=== PATIENT | male | born 1955 | race Two or more races ===

== ENCOUNTER 2024-04-06 11:30 | Inpatient (IN) | payer MEDICARE, OTHER ==
[~2024-04-06] VITALS: Ht 175.3 cm; Wt 103.0 kg
[~2024-04-06 11:30] MED LIST: CYCL10TA9 PO; LOPE2TAB57 PO
[2024-04-06 11:58] LABS: BASOPHILS # (AUTO) 0.1 K/uL (0.0-0.2); BASOPHILS % (AUTO) 1.3 % (0.0-2.0); EOSINOPHILS # (AUTO) 0.2 K/uL (0.0-0.7); EOSINOPHILS % (AUTO) 3.3 % (0.0-6.0); HEMATOCRIT 46 % (39-51); HEMOGLOBIN 15.5 g/dL (13.5-17.5); LYMPHOCYTES # (AUTO) 1.7 K/uL (0.8-4.8); LYMPHOCYTES % (AUTO) 23.5 % (20.0-44.0); MEAN CORPUSCULAR HEMOGLOBIN 30 PG (26.0-33.0); MEAN CORPUSCULAR HGB CONC 34 g/dl (31.0-36.0); MEAN CORPUSCULAR VOLUME 88 fL (80-96); MONOCYTES # (AUTO) 0.6 K/uL (0.1-1.30); MONOCYTES % (AUTO) 8.7 % (2.0-12.0); NEUTROPHILS # (AUTO) 4.5 K/uL (1.8-8.9); NEUTROPHILS % (AUTO) 63.2 % (43.0-81.0); PLATELET COUNT (AUTO) 252 K/uL (150-450); RED BLOOD CELL COUNT(AUTO) 5.23 MIL/uL (4.5-6.0); RED CELL DISTRIBUTION WIDTH 14.4 % (11.5-15.0); WHITE BLOOD COUNT (AUTO) 7.1 K/uL (4.3-11.0)
[2024-04-06] MEDS: VANCOMYCIN 1 GM in IV D5W 250 ML IV ONE (12:00)
[2024-04-06] MEDS: IV NS 0.9% 1,000 ML BAG IV ONE (12:20)
[2024-04-06] MEDS: PIPERACILLIN /TAZOBACTAM 3.375 G in IV D5W 50 ML IV ONE (12:21)
[2024-04-06] MEDS ORDERED: IV NS 0.9% 250 ML IV ONE (12:35)
[2024-04-06] MEDS ORDERED: IOHEXOL-300 100 ML VIAL IV ONE (12:35)
[2024-04-06] MEDS ORDERED: CT SWABBABLE VALVE TRANS SET 1 EA INFUS.SET MC ONE (12:35)
[2024-04-06 12:36] LABS: CARBON DIOXIDE 29 mmol/L (21-32); CHLORIDE 100 mmol/L (98-107); CREATININE 0.8 mg/dL (0.6-1.3); GLUCOSE 114 mg/dL (74-106); POTASSIUM 4.4 mmol/L (3.5-5.1); SODIUM SERUM 136 mmol/L (136-145); UREA NITROGEN, BLOOD 9 mg/dL (7-18)
[2024-04-06 12:39] LABS: MAGNESIUM 2.2 mg/dL (1.8-2.4); PHOSPHORUS 3.5 mg/dL (2.5-4.9)
[2024-04-06 12:43] LABS: SITE, VBG VBG - N/A; VBG BASE EXCESS 2.8 mmol/L (-2.0-3.0); VBG COHb 12.9 % (0.5-1.5); VBG HCO3 29.1 mmol/L (22.0-29.0); VBG MetHb 0.3 % (0.5-1.5); VBG O2Hb 70.6 % (0-79); VBG OXYGEN SATURATION 81.3 % (60.0-85.0); VBG PCO2 50.5 mmHg (38.0-54.0); VBG PH 7.378 (7.320-7.430); VBG PO2 40.3 mmHg (23.0-48.0); VBG TOTAL HEMOGLOBIN 15.9 G/dL (13.5-17.5)
[2024-04-06 12:43] LABS: ALANINE AMINOTRANSFERASE 25 U/L (12-78); ALBUMIN 3.6 g/dL (3.4-5.0); ALKALINE PHOSPHATASE 76 U/L (46-116); ASPARTATE AMINOTRANSFERASE 16 U/L (15-37); BILIRUBIN,DIRECT 0.1 mg/dL (0.0-0.2); BILIRUBIN,TOTAL 0.4 mg/dL (0.2-1.0); INR 0.99 (0.91-1.10); PARTIAL THROMBOPLASTIN TIME 27.6 SEC (24.3-34.3); PROTHROMBIN TIME 10.5 SECS (9.2-11.1); TOTAL PROTEIN, SERUM 7.9 g/dL (6.4-8.2)
[2024-04-06 12:45] LABS: ACETONE, SERUM NEGATIVE (NEGATIVE)
[2024-04-06 12:47] LABS: LACTIC ACID 1.4 mmol/L (0.4-2.0)
[2024-04-06 13:00] LABS: APPEARANCE,URINE CLEAR (CLEAR); BILIRUBIN,URINE NEGATIVE (NEGATIVE); BLOOD, URINE NEGATIVE Ery/uL (NEGATIVE); COLOR,URINE YELLOW (YELLOW); KETONES,URINE NEGATIVE (NEGATIVE); LEUKOCYTE ESTERASE ,URINE NEGATIVE (NEGATIVE); NITRITE, URINE NEGATIVE (NEGATIVE); PROTEIN,URINE NEGATIVE (NEGATIVE); UGLUCOSE NEGATIVE (NEGATIVE); UROBILINOGEN,URINE 0.2 EU/dL (0.2)
[2024-04-06] MEDS ORDERED: ASPI-1169 PO (14:42)
[2024-04-06] MEDS ORDERED: FLUC200T PO (14:42)
[2024-04-06] MEDS ORDERED: ATOR40TA PO (14:42)
[2024-04-06] MEDS ORDERED: LORA10TA68 PO (14:42)
[2024-04-06] MEDS ORDERED: BUDE10.2 IH (14:42)
[2024-04-06] MEDS ORDERED: AMOX-430 PO (14:42)
[2024-04-06] MEDS ORDERED: FINA5TAB11 PO (14:42)
[2024-04-06] MEDS ORDERED: METF-442 PO (14:42)
[2024-04-06] MEDS ORDERED: LOSA1TAB36 PO (14:42)
[2024-04-06] MEDS ORDERED: TAMS-12 PO (14:42)
[2024-04-06] MEDS ORDERED: ONDANSETRON HCL/PF 4 MG/2 ML VIAL IVP PRN (15:30)
[2024-04-06] MEDS ORDERED: MAG HYDROX/AL HYDROX/SIMETH 30 ML UDC PO PRN (15:30)
[2024-04-06] MEDS ORDERED: MAGNESIUM HYDROXIDE 30 ML UDC PO PRN (15:30)
[2024-04-06 16:00] VITALS: BP 166/73; TEMP 97.3; O2SAT 95
[2024-04-06] MEDS: CEFEPIME 2 GM in IV D5W 100 ML IV SCH (17:17)
[2024-04-06] MEDS: methylPREDNISolone SOD SUCC 125 MG/2ML VIAL IV ONE (17:17)
[2024-04-06] MEDS: NICOTINE PATCH (21MG) 21 MG PATCH.TD24 TD SCH (17:52)
[2024-04-06 18:46] LABS: C-REACTIVE PROTEIN 0.41 mg/dL (0.0-0.30); PROSTATE SPECIFIC ANTIGEN SCR 1.16 ng/mL (0.00-4.00)
[2024-04-06 20:00] VITALS: BP_SYST 159; BP_SYST 161; BP_DIAS 78; TEMP 98.1; O2SAT 92
[2024-04-06] MEDS: diphenhydrAMINE HCL ELIX 25 MG/10 ML UDC PO PRN (21:53)
[2024-04-07] MEDS: GUAIFENESIN/D-METHORPHAN HB 5 ML UDC PO PRN (00:56)
[2024-04-07 04:02] LABS: HIV-1 p24 ANTIGEN NON REACTIVE (NONREACTIVE); HIV-1/2 ANTIBODY NON REACTIVE (NONREACTIVE)
[2024-04-07 06:55] LABS: BASOPHILS % (AUTO) 0.2 % (0.0-2.0); HEMATOCRIT 44 % (39-51); HEMOGLOBIN 14.8 g/dL (13.5-17.5); LYMPHOCYTES # (AUTO) 0.9 K/uL (0.8-4.8); LYMPHOCYTES % (AUTO) 15.8 % (20.0-44.0); MEAN CORPUSCULAR HEMOGLOBIN 29 PG (26.0-33.0); MEAN CORPUSCULAR HGB CONC 33 g/dl (31.0-36.0); MEAN CORPUSCULAR VOLUME 87 fL (80-96); MONOCYTES # (AUTO) 0.1 K/uL (0.1-1.30); NEUTROPHILS # (AUTO) 4.4 K/uL (1.8-8.9); PLATELET COUNT (AUTO) 248 K/uL (150-450); RED CELL DISTRIBUTION WIDTH 14.7 % (11.5-15.0); WHITE BLOOD COUNT (AUTO) 5.4 K/uL (4.3-11.0)
[2024-04-07 07:38] LABS: CALCIUM, SERUM 9.3 mg/dL (8.5-10.1); CREATININE 0.7 mg/dL (0.6-1.3); POTASSIUM 4.7 mmol/L (3.5-5.1)
[2024-04-07 08:00] VITALS: BP 130/76; TEMP 97.7; O2SAT 96
[2024-04-07 08:31] VITALS: BP 130/76; TEMP 97.7; O2SAT 96
[2024-04-07] MEDS: METFORMIN 500 MG TABLET PO SCH (09:00)
[2024-04-07] MEDS: FINASTERIDE (5 MG) 5 MG TABLET PO SCH (09:26)
[2024-04-07] MEDS: TAMSULOSIN 0.4 MG CAP.SR.24H PO SCH (09:26)
[2024-04-07] MEDS: CLOTRIMAZOLE/BETAMETASONE DIPROPIONATE 15 GM TUBE TP SCH (09:27)
[2024-04-07 16:00] VITALS: BP 127/63; TEMP 98.2; O2SAT 95
[2024-04-07 16:33] VITALS: BP 127/63; TEMP 98.2; O2SAT 93
[2024-04-07 20:00] VITALS: BP 148/69; TEMP 97.7; O2SAT 95
[2024-04-08 07:08] LABS: RAPID PLASMA REAGIN QUAL. Non Reactive (Non Reactive)
[2024-04-08] MEDS: LORATADINE 10 MG TABLET PO SCH (12:34)
[2024-04-08] MEDS: ACETAMINOPHEN 325 MG TABLET PO PRN (15:22)
[2024-04-08] MEDS: Z GUARD REMEDY 4 OZ OINT TP PRN (16:31)
[2024-04-08 20:00] VITALS: BP 151/77; TEMP 97.3; TEMP 97.5; O2SAT 95
[2024-04-08] MEDS: diphenhydrAMINE HCL ELIX 25 MG/10 ML UDC PO ONE (22:38)
[2024-04-09 06:09] LABS: CHLAMYDIA TRACHOMATIS NAA Negative (Negative); NEISSERIA GONORRHOEAE NAA Negative (Negative)
[2024-04-09 06:24] LABS: BASOPHILS # (AUTO) 0.1 K/uL (0.0-0.2); BASOPHILS % (AUTO) 0.7 % (0.0-2.0); EOSINOPHILS # (AUTO) 0.1 K/uL (0.0-0.7); EOSINOPHILS % (AUTO) 1.7 % (0.0-6.0); HEMATOCRIT 45 % (39-51); HEMOGLOBIN 15.3 g/dL (13.5-17.5); LYMPHOCYTES # (AUTO) 1.7 K/uL (0.8-4.8); LYMPHOCYTES % (AUTO) 19.4 % (20.0-44.0); MEAN CORPUSCULAR HEMOGLOBIN 30 PG (26.0-33.0); MEAN CORPUSCULAR HGB CONC 34 g/dl (31.0-36.0); MEAN CORPUSCULAR VOLUME 88 fL (80-96); MONOCYTES # (AUTO) 0.7 K/uL (0.1-1.30); MONOCYTES % (AUTO) 8.4 % (2.0-12.0); NEUTROPHILS % (AUTO) 69.8 % (43.0-81.0); PLATELET COUNT (AUTO) 247 K/uL (150-450); RED BLOOD CELL COUNT(AUTO) 5.15 MIL/uL (4.5-6.0); RED CELL DISTRIBUTION WIDTH 14.9 % (11.5-15.0); WHITE BLOOD COUNT (AUTO) 8.6 K/uL (4.3-11.0)
[2024-04-09 06:50] LABS: CALCIUM, SERUM 9.2 mg/dL (8.5-10.1); CREATININE 0.9 mg/dL (0.6-1.3); POTASSIUM 4.1 mmol/L (3.5-5.1)
[2024-04-09 08:00] VITALS: BP 160/75; TEMP 98.1; O2SAT 94
[2024-04-09] MEDS ORDERED: FAMO-131 PO (09:59)
[2024-04-09] MEDS ORDERED: HC A30CR12 RC (09:59)
[2024-04-09] MEDS ORDERED: METH4TAB3 PO (09:59)
[2024-04-09] MEDS: FAMOTIDINE/PF INJ 20 MG/2 ML VIAL IV ONE (10:38)
[2024-04-09] MEDS: dexaMETHasone SOD PHOSPHATE 10 MG/ML VIAL IM ONE (10:41)
== END 2024-04-09 17:54 | disposition home health service (06) | DRG 727 ==
LOC: ER 11:32 → TELE 14:42 → MED 17:27
PROVIDERS: ADMIT Internal Medicine; ATTEND Nurse Practitioner Acute Care
DX: N49.2 Inflammatory disorders of scrotum (principal); G93.41 Metabolic encephalopathy; J44.1 Chronic obstructive pulmonary disease with (acute) exacerbation; Z99.81 Dependence on supplemental oxygen; E11.9 Type 2 diabetes mellitus without complications; Z79.82 Long term (current) use of aspirin; Z79.84 Long term (current) use of oral hypoglycemic drugs; Z79.899 Other long term (current) drug therapy; E78.5 Hyperlipidemia, unspecified; Z79.51 Long term (current) use of inhaled steroids; N40.0 Benign prostatic hyperplasia without lower urinary tract symptoms; F17.200 Nicotine dependence, unspecified, uncomplicated; K21.9 Gastro-esophageal reflux disease without esophagitis; E66.9 Obesity, unspecified; Z82.49 Family history of ischemic heart disease and other diseases of the circulatory system; Z68.33 Body mass index [BMI] 33.0-33.9, adult; L50.9 Urticaria, unspecified; N43.3 Hydrocele, unspecified; T36.95XA Adverse effect of unspecified systemic antibiotic, initial encounter; Y92.239 Unspecified place in hospital as the place of occurrence of the external cause; I11.0 Hypertensive heart disease with heart failure; I50.9 Heart failure, unspecified
CPT/HCPCS: 36415; 70450-TC; 71045-TC; 76870-TC; 80048-TC; 80076-TC; 82010-TC; 82803-TC; 83605-TC; 83735-TC; 84100-TC; 84153-TC; 84484-TC; 85025-TC; 85652-TC; 85730-TC; 86140-TC; 86592; 86593; 86803; 87040-TC; 87491; 87591; 87806; 93307-TC; A4223; A6253; A6403; G0378; J0692; J1100; J2543; J2919; J3370; J3490; J7030; J7050; J7060; Q0163; Q9967